=== PATIENT | male | born 1975 | race Caucasian/White ===

== ENCOUNTER → 2017-01-24 | Outpatient (CLI) | payer OTHER ==
[~2017-01-24] MED LIST: DIAZ5TAB4 PO; GADOBUTROL 7.5 MMOL/7.5 ML VIAL INT ART ONE; IOHEXOL 300 MG/ML 50 ML VIAL. INT ART ONE; LIDOCAINE 1% Multi-Dose 20 ML VIAL. ID ONE; PHEN15CA PO
--- NOTE | 2017-01-24 14:05 | KCIC ---
Examination: Left Shoulder Arthrogram: Indications: Left shoulder pain Procedure: Risks, benefits and complications including bleeding, infection, blood vessel damage or joint infection were discussed with the patient. Questions were answered and consent form signed. The patient was placed supine on the fluoroscopy table with the shoulder slightly externally rotated. Bony landmarks were used to plan for fluoroscopic injection. The patient was carefully prepped and draped in a sterile fashion. Using fluoroscopic guidance, local anesthetic and a 22 gauge needle the joint space was entered. Intra-articular location was confirmed as approximately 12cc of a mixture of 10 mL of saline, 5 mL of lidocaine, 5 ml Omnipaque 300 and 0.1 mL of gadavist was injected to distend the shoulder joint. The procedure was well tolerated and the patient was sent to MRI. However, patient did not have the MRI after the procedure as he felt claustrophobic and did not want to have the exam done. Impression: Status post fluoroscopic guided arthrogram . Total fluoroscopic time 25 seconds. Total number of fluoroscopic images 1. Electronically signed by: Jalen Chiu MD (01/24/2017 2:02 PM) [id number]
== END | disposition home or self-care (01) ==
LOC: KCIC 10:28
PROVIDERS: ATTEND Orthopaedic Surgery
DX: M25.512 Pain in left shoulder (principal)
CPT/HCPCS: 73040; A9585; Q9967